=== PATIENT | male | born 1995 | race Caucasian/White ===

== ENCOUNTER 2019-10-22 08:39 | Inpatient (IN) | payer BC ==
--- NOTE | 2019-10-22 09:18 | ER Document Report ---
ED Medical Screen (RME) - General Chief Complaint: Flu Symptoms Stated Complaint: VOMITING,DIARRHEA,HEADACHE Time Seen by Provider: 10/22/19 09:16 Mode of Arrival: Ambulatory Information source: Patient Notes: 24-year-old male presented to ED for complaint of cough cold congestion sore throat fever for the last 2 days. He states he has chest pain bilaterally. He does have a pain to palpation to bilateral chest lungs are clear to auscultation. 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 Patient is alert oriented respirations regular nonlabored speaking in full sentences. I have greeted and performed a rapid initial assessment of this patient. A comprehensive ED assessment and evaluation of the patient, analysis of test results and completion of medical decision making process will be conducted by an additional ED providers. TRAVEL OUTSIDE OF THE [place] IN LAST 30 DAYS: No - Related Data Allergies/Adverse Reactions: No Known Allergies Allergy (Unverified 10/22/19 09:11) Past Medical History - Immunizations Immunizations up to date: Yes Hx Diphtheria, Pertussis, Tetanus Vaccination: Yes Physical Exam - Vital signs Vitals: Temp Pulse Resp BP Pulse Ox 101.6 F H 112 H 20 130/69 H 100 10/22/19 08:53 10/22/19 08:53 10/22/19 08:53 10/22/19 08:53 10/22/19 08:53 Course - Vital Signs Vital signs: Temp Pulse Resp BP Pulse Ox 101.6 F H 112 H 20 130/69 H 100 10/22/19 09:10 10/22/19 09:10 10/22/19 09:10 10/22/19 09:10 10/22/19 09:10
[2019-10-22] MEDS ORDERED: NORMAL SALINE IV ONE (09:19)
[2019-10-22] MEDS ORDERED: ACETAMINOPHEN 325 MG TABLET PO ONE ×2 (09:19→18:35)
[2019-10-22 09:51] LABS: ABSOLUTE LYMPHOCYTES (AUTO) 0.7 10^3/uL (0.5-4.7); ABSOLUTE NEUT (AUTO) 6.8 10^3/uL (1.7-8.2); BASOPHILS % (AUTO) 0.4 % (0-2); EOSINOPHILS % (AUTO) 0.1 % (0-6); HEMATOCRIT 41.6 % (37.9-51.0); HEMOGLOBIN 14.7 g/dL (13.5-17.0); LYMPHOCYTES % (AUTO) 8.7 % (13-45); MEAN CORPUSCULAR HEMOGLOBIN 30.8 pg (27.0-33.4); MEAN CORPUSCULAR HGB CONC 35.3 g/dL (32.0-36.0); MEAN CORPUSCULAR VOLUME 87 fl (80-97); MONOCYTES % (AUTO) 11.9 % (3-13); PLATELET COUNT 140 10^3/uL (150-450); RED BLOOD COUNT 4.77 10^6/uL (4.35-5.55); RED CELL DISTRIBUTION WIDTH 12.7 % (11.5-14.0); SEGMENTED NEUTROPHILS % (AUTO) 78.9 % (42-78); TOTAL CELLS COUNTED % (AUTO) 100 %; WHITE BLOOD COUNT 8.6 10^3/uL (4.0-10.5)
[2019-10-22 10:11] LABS: ANION GAP 11 (5-19)
[2019-10-22 10:50] LABS: A TYPE INFLUENZA AG NEGATIVE (NEGATIVE); B INFLUENZA AG NEGATIVE (NEGATIVE)
[2019-10-22 10:50] LABS: ALBUMIN 4.1 g/dL (3.5-5.0); ALKALINE PHOSPHATASE 65 U/L (38-126); ASPARTATE AMINO TRANSFERASE 58 U/L (17-59); BILIRUBIN,DIRECT 0.3 mg/dL (0.0-0.4); BILIRUBIN,TOTAL 0.9 mg/dL (0.2-1.3); BLOOD UREA NITROGEN 18 mg/dL (7-20); CALCIUM 9.2 mg/dL (8.4-10.2); CARBON DIOXIDE 25 mmol/L (22-30); CHLORIDE 97 mmol/L (98-107); GLUCOSE 135 mg/dL (75-110); POTASSIUM 4.2 mmol/L (3.6-5.0); TOTAL PROTEIN 7.6 g/dL (6.3-8.2)
--- NOTE | 2019-10-22 10:51 | ER Document Report ---
ED General - General Mode of Arrival: Ambulatory TRAVEL OUTSIDE OF THE [place] IN LAST 30 DAYS: No <GABRIEL LEWIS - Last Filed: 10/22/19 20:39> <LUCAS URBINA - Last Filed: 10/23/19 07:37> - General Chief Complaint: Flu Symptoms Stated Complaint: VOMITING,DIARRHEA,HEADACHE Time Seen by Provider: 10/22/19 09:16 Notes: Patient is a 24-year-old male who presents to the emergency department with a chief complaint of rhinorrhea, nausea, diarrhea, and vomiting. Patient has a fever here in the emergency department. Patient states that he has generally n ot been feeling well. He has not able to keep any food or drink down. He also states that he started to have some chest pain that started yesterday. Patient states that he has a history of marijuana and cocaine use, but states that the cocaine use was a long time ago. Patient adamantly denies any IV drug use. (GABRIEL LEWIS) - Related Data Allergies/Adverse Reactions: No Known Allergies Allergy (Unverified 10/22/19 09:11) Past Medical History - General Information source: Patient - Social History Smoking Status: Current Every Day Smoker Family History: None, Other - NEG. GOUT Patient has suicidal ideation: No Patient has homicidal ideation: No - Immunizations Immunizations up to date: Yes Hx Diphtheria, Pertussis, Tetanus Vaccination: Yes <GABRIEL LEWIS - Last Filed: 10/22/19 20:39> Review of Systems <GABRIEL LEWIS - Last Filed: 10/22/19 20:39> - Review of Systems Notes: REVIEW OF SYSTEMS: CONSTITUTIONAL : See HPI. EENT: See HPI. CARDIOVASCULAR: See HPI. RESPIRATORY: See HPI. GASTROINTESTINAL: See HPI. GENITOURINARY: Denies difficulty urinating, burning, blood in urine, urgency or frequency. MUSCULOSKELETAL: Denies neck and back pain. Denies joint pain or swelling. SKIN: Denies rash, itchiness, or lesions HEMATOLOGIC : Denies easy bruising or bleeding. LYMPHATIC: Denies swollen, painful, enlarged glands. NEUROLOGICAL: Denies no numbness or tingling denies weakness. Denies headache. Denies altered mental status. Denies alteration in speech. PSYCHIATRIC: Denies stress, anxiety, alteration in sleep patterns, or depression. All other systems reviewed and negative. (GABRIEL LEWIS) Physical Exam <GABRIEL LEWIS - Last Filed: 10/22/19 20:39> - Vital signs Vitals: Temp Pulse Resp BP Pulse Ox 101.6 F H 112 H 20 130/69 H 100 10/22/19 08:53 10/22/19 08:53 10/22/19 08:53 10/22/19 08:53 10/22/19 08:53 - Notes Notes: PHYSICAL EXAMINATION: GENERAL: Appears thin, mild distress. HEAD: Normocephalic, atraumatic. EYES: PERRL, conjunctiva normal, all extraocular movements intact, sclera nonicteric ENT: Moist mucous membranes. NECK: Supple, no noticeable swelling, redness, rash. Normal range of motion. LUNGS: Equal breath sounds bilaterally and clear to auscultation. No wheezes rales or rhonchi. CARDIOVASCULAR: S1-S2, tachycardic, regular rhythm. Radial pulses 2+, normal. ABDOMEN: Normoactive bowel sounds. Soft, nontender, no guarding, no rebound tenderness, and no masses palpated. EXTREMITIES: Normal strength and range of motion, no pitting or edema. No cyanosis. NEUROLOGICAL: Moves all extremities upon command. Strength 5/5 in all extremities. PSYCH: Normal mood, normal affect. SKIN: Warm, dry. No rash, lesions, ulcerations noted. Normal skin turgor. (GABRIEL LEWIS) Course - Laboratory Result Diagrams: 10/22/19 09:40 10/22/19 09:40 <GABRIEL LEWIS - Last Filed: 10/22/19 20:39> - Laboratory Result Diagrams: 10/23/19 03:59 10/23/19 03:59 <LUCAS URBINA - Last Filed: 10/23/19 07:37> - Re-evaluation Re-evalutation: 10/22/19 12:44 Patient's troponin is 6.24 and his BNP is 3000 480. I suspect that the patient has endocarditis. Patient will be started on cefepime, vancomycin, and Lovenox. Called [facility] transfer center. Awaiting callback from roof plumber. 10/22/19 13:05 I spoke with the roof plumber over at [facility]. Patient will be transferred there for cardiology consult. 10/22/19 19:[address] Lord, the hospitalist at [facility]. Patient will be placed on the wait list for there, as there still is no bed at [facility]. 10/22/19 20:39 Bedside report given to PURA Sadler. He will evaluate the patient upon transfer. (GABRIEL LEWIS) 10/23/19 I have evaluated the patient. Patient has had significant delay and transfer to tertiary care center. I discussed with patient at bedside. He insists that he has never used IV drugs, he does not have any track cuenca, he also has a constellation of symptoms including vomiting, diarrhea, runny nose, along with the chest pain. His drug screen is negative. His bedside echocardiogram did not show any vegetation and showed a small effusion. Patient did have significantly elevated troponin with fever, negative CTA of the chest. Overall clinical picture is more suggestive of myocarditis instead of endocarditis. B lood cultures are still pending, patient did not have any leukocytosis or bandemia. We still do not have cardiology on-call however therefore I did call and speak to [facility]. I spoke with Dr. Meyer. She requests ESR and CRP since the blood cultures are still pending as opposed to being negative, she states clinical picture is more consistent with myocarditis and if this is more likely the case and we have cardiology remote control mirror installer this morning she recommends that the patient really does not need to be transferred until we speak with the roof plumber. I spoke with Dr. Velasquez and he states he will review the records and call me back. 10/23/19 07:27 I spoke again with Dr. Velasquez, roof plumber remote control mirror installer, he states he will consult on the patient, he agrees this is myocarditis and he recommends patient be admitted to this hospital instead of transferred. Patient is very agreeable with this. 10/23/19 07:[address] Rich, hospitalist, patient accepted to [facility] full admission. (LUCAS URBINA) - Vital Signs Vital signs: Temp Pulse Resp BP Pulse Ox 98.7 F 112 H 20 86/61 L 96 10/23/19 04:59 10/22/19 09:10 10/23/19 07:01 10/23/19 07:00 10/23/19 07:01 - Laboratory Laboratory results interpreted by me: 10/22/19 10/22/19 10/22/19 09:40 09:40 09:40 RBC Hgb Hct Plt Count 140 L Lymph % (Auto) 8.7 L Seg Neutrophils % 78.9 H ESR Sodium 132.7 L Potassium Chloride 97 L Carbon Dioxide Glucose 135 H Lactic Acid Calcium Direct Bilirubin AST Creatine Kinase 280 H C-Reactive Protein NT-Pro-B Natriuret Pep Total Protein Albumin Urine Ketones Urine Blood 10/22/19 10/22/19 10/23/19 10:52 12:32 03:59 RBC Hgb Hct Plt Count Lymph % (Auto) Seg Neutrophils % ESR Sodium 134.3 L Potassium 3.4 L Chloride Carbon Dioxide 21 L Glucose Lactic Acid Calcium 7.8 L Direct Bilirubin 0.7 H AST 158 H Creatine Kinase C-Reactive Protein NT-Pro-B Natriuret Pep 3480 H Total Protein 5.8 L Albumin 2.8 L Urine Ketones TRACE H Urine Blood MODERATE H 10/23/19 10/23/19 10/23/19 03:59 03:59 03:59 RBC 3.75 L Hgb 11.5 L D Hct 33.1 L Plt Count 106 L Lymph % (Auto) Seg Neutrophils % ESR 47 H Sodium Potassium Chloride Carbon Dioxide Glucose Lactic Acid 0.6 L Calcium Direct Bilirubin AST Creatine Kinase C-Reactive Protein NT-Pro-B Natriuret Pep Total Protein Albumin Urine Ketones Urine Blood 10/23/19 03:59 RBC Hgb Hct Plt Count Lymph % (Auto) Seg Neutrophils % ESR Sodium Potassium Chloride Carbon Dioxide Glucose Lactic Acid Calcium Direct Bilirubin AST Creatine Kinase C-Reactive Protein 157.6 H NT-Pro-B Natriuret Pep Total Protein Albumin Urine Ketones Urine Blood Discharge <GABRIEL LEWIS - Last Filed: 10/22/19 20:39> - Discharge Admitting Provider: Hilario (Hospitalist) Unit Admitted: [facility] <CARLITOSLUCAS - Last Filed: 10/23/19 07:37> - Discharge Clinical Impression: Elevated troponin, Vomiting and diarrhea, Tachycardia Fever Qualifiers: Fever type: unspecified Qualified Code(s): R50.9 - Fever, unspecified Hypotension Qualifiers: Hypotension type: unspecified hypotension type Qualified Code(s): I95.9 - Hypotension, unspecified Condition: Fair Disposition: ADMITTED INPATIENT
[2019-10-22] MEDS ORDERED: ONDANSETRON HCL INJ/PF 4 MG/2 ML SDV IV ONE ×2 (11:10→23:26)
--- NOTE | 2019-10-22 11:10 | RADIOLOGY REPORT (SQ) ---
EXAM DESCRIPTION: CHEST 2 VIEWS COMPLETED DATE/TIME: 10/22/2019 11:01 am REASON FOR STUDY: cough congestion fever COMPARISON: None. EXAM PARAMETERS: NUMBER OF VIEWS: two views TECHNIQUE: PA and lateral views of the chest were obtained. RADIATION DOSE: NA LIMITATIONS: none FINDINGS: LUNGS AND PLEURA: No consolidation, pleural effusion or pneumothorax. MEDIASTINUM AND HILAR STRUCTURES: No mediastinal or hilar contour abnormality. HEART AND VASCULAR STRUCTURES: The cardiac silhouette and pulmonary vasculature are within normal hernandez its. BONES: No acute findings. HARDWARE: None in the chest. OTHER: No other finding. IMPRESSION: No acute cardiopulmonary process. TECHNICAL DOCUMENTATION: JOB ID: [id number] [employer]- All Rights Reserved Reading location - IP/workstation name: [email or web address]
[2019-10-22 11:38] LABS: TROPONIN I 6.24 ng/mL
[2019-10-22] MEDS ORDERED: CEFTRIAXONE 2 GM/D5W RTU 2 GM/50 ML RTUPB IV ONE (12:24)
[2019-10-22] MEDS ORDERED: VANCOMYCIN HCL INJ 1000 MG VIAL IV ONE (12:25)
[2019-10-22] MEDS ORDERED: CEFEPIME 1 GM/D5W RTU 1 GM/50 ML RTUPB IV ONE (12:26)
--- NOTE | 2019-10-22 13:03 | EKG REPORT ---
SEVERITY:- OTHERWISE NORMAL ECG - SINUS TACHYCARDIA BORDERLINE RIGHT AXIS DEVIATION : Confirmed by: Nelson Prescott MD 22-Oct-2019 13:02:20
[2019-10-22 13:22] LABS: APPEARANCE,URINE CLEAR; BILIRUBIN,URINE NEGATIVE (NEGATIVE); COLOR,URINE YELLOW; GLUCOSE, URINE NEGATIVE (NEGATIVE); KETONES,URINE TRACE mg/dL (NEGATIVE); LEUKOCYTE ESTERASE,URINE NEGATIVE (NEGATIVE); NITRITE,URINE NEGATIVE (NEGATIVE); PROTEIN,URINE NEGATIVE (NEGATIVE); URINE SPECIFIC GRAVITY 1.009; UROBILINOGEN,URINE NEGATIVE mg/dL (<2.0)
[2019-10-22 13:44] LABS: URINE AMPHETAMINES SCREEN NEGATIVE; URINE BARBITURATES SCREEN NEGATIVE; URINE BENZODIAZEPINES SCREEN NEGATIVE; URINE COCAINE SCREEN NEGATIVE; URINE MARIJUANA (THC) SCREEN NEGATIVE; URINE METHADONE SCREEN NEGATIVE; URINE PHENCYCLIDINE SCREEN NEGATIVE
[2019-10-22] MEDS: ENOXAPARIN SODIUM INJ 80 MG/0.8 ML DISP.SYRIN SUBCUT SCH ×2 (14:09→21:37)
--- NOTE | 2019-10-22 14:13 | RADIOLOGY REPORT (SQ) ---
EXAM DESCRIPTION: CTA CHEST COMPLETED DATE/TIME: 10/22/2019 1:58 pm REASON FOR STUDY: chest pain; tachycardia COMPARISON: None. TECHNIQUE: CT scan of the chest performed using helical scanning technique with dynamic intravenous contrast injection. Images reviewed with lung, soft tissue and bone windows. Reconstructed coronal and sagittal MPR images reviewed. Additional 3 dimensional post-processing performed to develop Maximal Intensity Projection images (PA P). All images stored on PACS. All CT scanners at this facility use dose modulation, iterative reconstruction, and/or weight based d osing when appropriate to reduce radiation dose to as low as reasonably achievable (ALARA). [facility]: Dose Right [facility]: CareDose [facility]: Dose Right [facility]: Teradose 4D [facility]: Bizware CONTRAST TYPE AND DOSE: contrast/concentration: Isovue 350.00 mg/ml; Total Contrast Delivered: 112.0 ml; Total Saline Delivered: 61.3 ml Contrast bolus adequate for pulmonary arteries and aorta. RENAL FUNCTION: BUN 18 creatinine 0.99 RADIATION DOSE: CT Rad equipment meets quality standard of care and radiation dose reduction techniq ues were employed. CTDIvol: 13.2 - 14.3 mGy. DLP: 1174 mGy-cm. . LIMITATIONS: None. FINDINGS: LUNGS AND PLEURA: No masses, infiltrates, or pneumothorax. No pleural effusions or pleura l calcifications. AORTA AND GREAT VESSELS: No aneurysm. No dissection. HEART: No pericardial effusion. No significant coronary artery calcifications. PULMONARY ARTERIES: No emboli visualized in the main pulmonary arteries or the segmental branches. HILAR AND MEDIASTINAL STRUCTURES: No identified masses or abnormal nodes. HARDWARE: None in the chest. UPPER ABDOMEN: No significant findings. Limited exam. THYROID AND OTHER SOFT TISSUES: No masses. No adenopathy. BONES: No acute or significant finding. 3D MIPS: Confirm above findings. OTHER: No other significant finding. IMPRESSION: There is no pulmonary embolus. There is no aortic aneurysm or dissection. No acute fin ding. COMMENT: Quality ID # [id number]: Final reports with documentation of one or more dose reduction techniques (e.g., Automated exposure control, adjustment of the mA and/or kV according to patient size, use of iterative reconstruction technique) TECHNICAL DOCUMENTATION: JOB ID: [id number] [employer]- All Rights Reserved Reading location - IP/workstation name: [email or web address]
--- NOTE | 2019-10-22 16:01 | EKG REPORT ---
SEVERITY:- BORDERLINE ECG - SINUS TACHYCARDIA BORDERLINE RIGHT AXIS DEVIATION BORDERLINE T ABNORMALITIES, ANT-LAT LEADS : Confirmed by: Nelson Prescott MD 22-Oct-2019 16:01:24
[2019-10-22] MEDS ORDERED: NORMAL SALINE 1000 ML 1,000 ML IV ONE ×2 (16:58→18:45)
--- NOTE | 2019-10-22 17:46 | EKG REPORT ---
SEVERITY:- ABNORMAL ECG - SINUS TACHYCARDIA BORDERLINE T WAVE ABNORMALITIES ANTEROATERAL LEADS LA ENLARGEMENT : Confirmed by: Nelson Prescott MD 22-Oct-2019 17:46:10
--- NOTE | 2019-10-22 18:24 | XCELERA REPORT ---
[address] [address] Transthoracic Echocardiogram Report Name: JORGE ALBERTO PRINCE Age: 24 yrs Gender: Male : 1995 Patient Status: Emergency Patient Location: ER Study Date: 10/22/2019 03:33 PM Height: 72 in Weight: 160 lb BSA: 1.9 m2 Reason For Study: chest pain; eval endocarditis?; elevated troponin Ordering Physician: GABRIEL LEWIS Performed By: Mili Moise Interpretation Summary Min posterior pericardial effusion. Normal aortic root not dilated. Normal 3 cusps AV with no vegetation, no and no AR. MV appears abnormal in the PLAX view, AML is thickened, unable to be certain this is vegetation, No MS, no MVP and posterior directing mitral regurgitant jet, with no LA enlargement by CRISTIAN. Need CALLI to assess AML to r/o vegetation.. TV no vegetation, mild TR jet and no pulm hypentension RVSP 25mm Hg. No vegetation PV. no SD . LVis not enlarged, there is mild concentric LVH. LVEF 45-50% mild impaired, global LVSD except the inferior wall is not hypokinetic (normal). No LVDD. RH is not enlarged. MMode/2D Measurements & Calculations RVDd: 1.8 cm LVIDd: 4.9 cm FS: 21.8 % Ao root diam: 2.9 cm IVSd: 1.2 cm LVIDs: 3.8 cm EDV(Teich): Ao root area: LVPWd: 0.82 cm 112.0 ml ESV(Teich): 62.7 ml6.5 cm2 LA dimension: 3.1 cm EF(Teich): 44.0 % LVLd ap4: 8.2 cm SV(MOD-sp4): EDV(MOD-sp4): 44.0 ml 99.0 ml LVLs ap4: 6.6 cm ESV(MOD-sp4): 55.0 ml EF(MOD-sp4): 44.4 % Doppler Measurements & Calculations MV E max evon: MV P1/2t max evon: Ao V2 max: LV V1 max P.3 cm/sec 148.0 cm/sec 112.5 cm/sec 4.2 mmHg MV A max evon: MV P1/2t: 34.3 msec Ao max P.1 mmHg LV V1 max: 84.4 cm/sec 102.2 cm/sec MV E/A: 1.1 MVA(P1/2t): 6.4 cm2 MV dec slope: 1265 cm/sec2 MV dec time: 0.12 sec PA V2 max: TR max evon: MV P1/2t-pr_phl: 72.1 cm/sec 230.8 cm/sec 34.3 msec PA max PG: TR max P.3 mmHg 2.1 mmHg I WMSI = 1.81 % Normal = 19 Segments Size X - Cannot 1 - Normal 2 - 3 - Akinetic4 - 1-2 small Interpret Hypokinetic Dyskinetic 3-5 moderate 5 - 6-14 large Aneurysmal 15-16 diffuse : GABRIEL LEWIS Andre
[2019-10-22] MEDS ORDERED: LOPERAMIDE HCL 2 MG CAPSULE PO ONE (19:36)
[2019-10-22] MEDS ORDERED: VANCOMYCIN HCL 0 MG in DEXTROSE 5%-WATER 250 ML IV NR (20:15)
[2019-10-22] MEDS: CEFEPIME 1 GM/D5W RTU 1 GM/50 ML RTUPB IV SCH (21:05)
[2019-10-22] MEDS ORDERED: VANCOMYCIN HCL INJ 1000 MG VIAL ONE (21:20)
[2019-10-22] MEDS: VANCOMYCIN HCL 1,000 MG in DEXTROSE 5%-WATER 250 ML IV SCH (21:28)
[2019-10-23] MEDS ORDERED: ACETAMINOPHEN 325 MG TABLET PO ONE (00:21)
[2019-10-23 04:18] LABS: ABSOLUTE MONOCYTES (AUTO) 0.9 10^3/uL (0.1-1.4); ABSOLUTE NEUT (AUTO) 5.3 10^3/uL (1.7-8.2); BASOPHILS % (AUTO) 0.5 % (0-2); EOSINOPHILS % (AUTO) 0.5 % (0-6); HEMATOCRIT 33.1 % (37.9-51.0); LYMPHOCYTES % (AUTO) 13.7 % (13-45); MEAN CORPUSCULAR HEMOGLOBIN 30.8 pg (27.0-33.4); MEAN CORPUSCULAR HGB CONC 34.9 g/dL (32.0-36.0); MEAN CORPUSCULAR VOLUME 88 fl (80-97); MONOCYTES % (AUTO) 11.8 % (3-13); PLATELET COUNT 106 10^3/uL (150-450); RED BLOOD COUNT 3.75 10^6/uL (4.35-5.55); RED CELL DISTRIBUTION WIDTH 12.8 % (11.5-14.0); SEGMENTED NEUTROPHILS % (AUTO) 73.5 % (42-78); TOTAL CELLS COUNTED % (AUTO) 100 %; WHITE BLOOD COUNT 7.2 10^3/uL (4.0-10.5)
[2019-10-23 04:30] LABS: HEMOGLOBIN 11.5 g/dL (13.5-17.0)
[2019-10-23 04:33] LABS: ALBUMIN 2.8 g/dL (3.5-5.0); ALKALINE PHOSPHATASE 101 U/L (38-126); ANION GAP 8 (5-19); ASPARTATE AMINO TRANSFERASE 158 U/L (17-59); BILIRUBIN,DIRECT 0.7 mg/dL (0.0-0.4); BILIRUBIN,TOTAL 1.3 mg/dL (0.2-1.3); BLOOD UREA NITROGEN 11 mg/dL (7-20); CALCIUM 7.8 mg/dL (8.4-10.2); CARBON DIOXIDE 21 mmol/L (22-30); CHLORIDE 105 mmol/L (98-107); GLUCOSE 109 mg/dL (75-110); POTASSIUM 3.4 mmol/L (3.6-5.0); TOTAL PROTEIN 5.8 g/dL (6.3-8.2)
[2019-10-23] MEDS: CEFEPIME 1 GM/D5W RTU 1 GM/50 ML RTUPB IV SCH ×3 (05:00→21:42)
[2019-10-23] MEDS: VANCOMYCIN HCL 1,000 MG in DEXTROSE 5%-WATER 250 ML IV SCH ×3 (05:49→21:41)
[2019-10-23] MEDS ORDERED: TEMAZEPAM 15 MG CAPSULE PO PRN (09:23)
[2019-10-23] MEDS ORDERED: MAG HYDROX/AL HYDROX/SIMETH SUSP 30 ML UDCUP PO PRN (09:23)
[2019-10-23] MEDS ORDERED: MAGNESIUM HYDROXIDE SUSP 30 ML UDCUP PO PRN (09:23)
[2019-10-23] MEDS ORDERED: ONDANSETRON HCL INJ/PF 4 MG/2 ML SDV IV PRN (09:23)
[2019-10-23] MEDS: ENOXAPARIN SODIUM INJ 80 MG/0.8 ML DISP.SYRIN SUBCUT SCH ×2 (09:31→21:42)
[2019-10-23] MEDS ORDERED: LOPERAMIDE HCL 2 MG CAPSULE PO PRN (09:39)
[2019-10-23] MEDS ORDERED: COLCHICINE 0.6 MG TABLET PO SCH (10:00)
[2019-10-23] MEDS: NORMAL SALINE 1000 ML 1,000 ML IV PRN ×4 (10:55→23:13)
[2019-10-23] MEDS ORDERED: INFLUENZA QUAD (6MOS+) 2019-20 VAC 0.5 ML SYR IM ONE (10:56)
[2019-10-23] MEDS: FAMOTIDINE INJ/PF 20 MG/2 ML SDV IV SCH ×2 (11:13→21:42)
[2019-10-23 11:47] LABS: CREATINE KINASE MB 0.84 ng/mL (<4.55); TROPONIN I 1.67 ng/mL
--- NOTE | 2019-10-23 13:55 | EKG REPORT ---
SEVERITY:- ABNORMAL ECG - SINUS TACHYCARDIA BORDERLINE RIGHT AXIS DEVIATION ABNORMAL T, CONSIDER ISCHEMIA, LATERAL LEADS : Confirmed by: Nelson Prescott MD 23-Oct-2019 13:54:05
[2019-10-23 14:31] LABS: VANCOMYCIN,TROUGH 6.9 ug/mL (5.0-20.0)
--- NOTE | 2019-10-23 15:13 | PDOC CONSULTATION ---
Consultation Consult Date: 10/23/19 Provider Consulted: VIRGINIE VARGAS Consult reason:: Elevated troponin History of Present Illness Admission Date/PCP: 10/23/19 08:02 Patient complains of: Feeling unwell History of Present Illness: JORGE ALBERTO PRINCE is a 24 year old male with no significant prior medical history. He presents with general malaise, headache and constitutional symptoms. He was found to have elevated troponin He smokes cigarettes. He uses recreational agents including marijuana and cocaine. Last use was 3 months ago. 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 No familial illnesses. Certainly no familial history suggestive of premature coronary artery disease or sudden cardiac . At the time of my evaluation patient endorses some headache and chest discomfort. The chest discomfort is vastly improved. Social History Smoking Status: Current Every Day Smoker Cigarettes Packs Per Day: 1 Frequency of Alcohol Use: Occasional Hx Recreational Drug Use: Yes Drugs: None - Advance Directive Resuscitation Status: Full Code Family History Family History: None, Other - NEG. GOUT Parental Family History Reviewed: No - No familial illnesses Children Family History Reviewed: NA Sibling(s) Family History Reviewed.: NA Medication/Allergy Home Medications: No Home Medications 10/23/19 Allergies/Adverse Reactions: No Known Allergies Allergy (Unverified 10/22/19 09:11) Review of Systems Constitutional: PRESENT: as per HPI, chills, fatigue, fever(s), headache(s), night sweats Ears: PRESENT: as per HPI Cardiovascular: PRESENT: chest pain Neurological: PRESENT: as per HPI Psychiatric: PRESENT: as per HPI Physical Exam Vital Signs: Temp Pulse Resp BP Pulse Ox 98.4 F 109 H 16 83/34 L 100 10/23/19 09:23 10/23/19 14:00 10/23/19 09:23 10/23/19 09:23 10/23/19 09:23 Intake & Output 10/22/19 10/23/19 10/24/19 06:59 06:59 06:59 Intake Total 4590 300 Balance 4590 300 Weight 73 kg General appearance: PRESENT: no acute distress, cooperative, thin Head exam: PRESENT: atraumatic, normocephalic Eye exam: PRESENT: EOMI Respiratory exam: PRESENT: decreased breath sounds, symmetrical, unlabored Cardiovascular exam: PRESENT: +S1, +S2, tachycardia Pulses: PRESENT: normal radial pulses GI/Abdominal exam: PRESENT: soft Rectal exam: PRESENT: deferred Musculoskeletal exam: PRESENT: normal inspection Neurological exam: PRESENT: alert, awake, oriented to person, oriented to place, oriented to time, oriented to situation Skin exam: PRESENT: dry, intact Results Laboratory Results: 10/23/19 03:59 10/23/19 03:59 10/23/19 10/23/19 10/23/19 00:14 03:59 03:59 WBC 7.2 RBC 3.75 L Hgb 11.5 L D Hct 33.1 L MCV 88 MCH 30.8 MCHC 34.9 RDW 12.8 Plt Count 106 L Seg Neutrophils % 73.5 Sodium 134.3 L Potassium 3.4 L Chloride 105 Carbon Dioxide 21 L Anion Gap 8 BUN 11 Creatinine 0.88 Est GFR ( Amer) > 60 Glucose 109 Lactic Acid 1.2 Calcium 7.8 L Total Bilirubin 1.3 AST 158 H Alkaline Phosphatase 101 C-Reactive Protein Total Protein 5.8 L Albumin 2.8 L 10/23/19 10/23/19 03:59 03:59 WBC RBC Hgb Hct MCV MCH MCHC RDW Plt Count Seg Neutrophils % Sodium Potassium Chloride Carbon Dioxide Anion Gap BUN Creatinine Est GFR ( Amer) Glucose Lactic Acid 0.6 L Calcium Total Bilirubin AST Alkaline Phosphatase C-Reactive Protein 157.6 H Total Protein Albumin 10/22/19 10/22/19 10/22/19 09:40 09:40 10:52 Creatine Kinase 280 H CK-MB (CK-2) Troponin I 5.650 6.240 NT-Pro-B Natriuret Pep 3480 H 10/22/19 10/22/19 10/23/19 17:31 22:30 03:59 Creatine Kinase CK-MB (CK-2) Troponin I 4.200 3.180 2.340 NT-Pro-B Natriuret Pep 10/23/19 10/23/19 10:59 10:59 Creatine Kinase 99 CK-MB (CK-2) 0.84 Troponin I 1.670 NT-Pro-B Natriuret Pep EKG Comments: Twelve-lead EKG. Independently reviewed by me Sinus tachycardia. No convincing evidence of myocardial injury or ischemia. Impressions: Chest X-Ray 10/22/19 09:16 IMPRESSION: No acute cardiopulmonary process. Chest/Abdomen CTA 10/22/19 12:57 IMPRESSION: There is no pulmonary embolus. There is no aortic aneurysm or dissection. No acute finding. Transthoracic echocardiogram images were reviewed. Low normal to mildly reduced ventricular ejection fraction estimated at approximately 50% %. Mild global hypokinesis. Mitral valve is thickened without any convincing evidence for vegetation. Status: Imported from PACS Assessment & Plan - Diagnosis (1) Elevated troponin Is this a current diagnosis for this admission?: Yes Plan: Elevated troponin in the gentleman with constitutional symptoms are suggestive of ongoing infection with possible myocarditis EKG does not show any evidence of myocardial injury or ischemia. Would recommend supportive treatment for myocarditis. Echocardiogram shows mildly reduced to low normal ejection fraction with mild global hypokinesis. Agree with work-up for infectious fevers. Supportive care. Echocardiogram will be repeated based on clinical progress. Consider low-dose beta-cedric. Metoprolol 12.5 mg twice daily (2) Tachycardia Is this a current diagnosis for this admission?: Yes Plan: Likely reflection of overall infectious process and myocarditis. Supportive care Beta-cedric low-dose (3) Myocarditis Is this a current diagnosis for this admission?: Yes Plan: This is likely myocarditis in the presence of overwhelming infection or infectious process. Elevated troponin without typical chest pain and EKG not demonstrating any changes suggestive of myocardial ischemia Supportive care Beta-blockers Watch volume status Echocardiogram can be repeated based on clinical course
[2019-10-23 15:53] LABS: CREATINE KINASE MB 0.58 ng/mL (<4.55); TROPONIN I 1.51 ng/mL
[2019-10-23] MEDS: MORPHINE SULFATE 10 MG/ML INJ IV PRN ×2 (18:29→23:12)
[2019-10-23] MEDS ORDERED: NORMAL SALINE 1000 ML 1,000 ML IV PRN (18:38)
--- NOTE | 2019-10-23 20:45 | PDOC H&P ---
History of Present Illness Admission Date/PCP: 10/23/19 08:02 Patient complains of: Overwhelming fatigue with nausea, vomiting, diarrhea and chest discomfort History of Present Illness: JORGE ALBERTO PRINCE is a 24 year old male with no significant past medical history who reports progressive symptoms of nausea, vomiting, diarrhea, fever, chills, cold sweats and body aches since Tuesday at 3:00 in the morning. In the emergency room he is found to have elevated troponin, elevated BNP, elevated creatinine kinase, elevated C-reactive protein and hyponatremia. Myocarditis is suspected and the patient was referred to the hospital service for admission Past Medical History Medical History: None Past Surgical History Past Surgical History: Reports: Orthopedic Surgery - Wrist fracture Social History Lives with: Alone Smoking Status: Current Every Day Smoker Cigarettes Packs Per Day: 1 - He has not smoked over the last 3 days Electronic Cigarette use?: No Frequency of Alcohol Use: Occasional Hx Recreational Drug Use: Yes Drugs: Cocaine, Marijuana Hx Prescription Drug Abuse: No - Advance Directive Resuscitation Status: Full Code Family History Family History: Malignancy, Other - NEG. GOUT Parental Family History Reviewed: Yes Children Family History Reviewed: Yes Sibling(s) Family History Reviewed.: NA Medication/Allergy Home Medications: No Home Medications 10/23/19 Allergies/Adverse Reactions: No Known Allergies Allergy (Unverified 10/22/19 09:11) Review of Systems Constitutional: PRESENT: anorexia, chills, fatigue, fever(s), headache(s), night sweats Eyes: ABSENT: visual disturbances Ears: ABSENT: hearing changes Nose, Mouth, and Throat: ABSENT: mouth pain, sore throat Cardiovascular: PRESENT: chest pain Respiratory: ABSENT: dyspnea Gastrointestinal: PRESENT: diarrhea, nausea, vomiting Genitourinary: PRESENT: other - Decreased urine output Musculoskeletal: PRESENT: other Integumentary: ABSENT: diaphoresis Neurological: ABSENT: abnormal speech, confusion, syncope, tremor(s) Psychiatric: ABSENT: anxiety, depression, hallucinations Endocrine: ABSENT: cold intolerance, flushing, heat intolerance, polydipsia, polyphagia, polyuria Hematologic/Lymphatic: ABSENT: easy bleeding, easy bruising Physical Exam Vital Signs: Temp Pulse Resp BP Pulse Ox 100.9 F H 110 H 20 88/41 L 98 10/23/19 17:52 10/23/19 17:52 10/23/19 16:49 10/23/19 17:52 10/23/19 17:52 Intake & Output 10/22/19 10/23/19 10/24/19 06:59 06:59 06:59 Intake Total 4590 3030 Balance 4590 3030 Weight 73 kg General appearance: PRESENT: cooperative, thin, well-developed, well-nourished, other - Moderate to severe distress Head exam: PRESENT: atraumatic, normocephalic Eye exam: PRESENT: conjunctiva pink, EOMI. ABSENT: scleral icterus Ear exam: PRESENT: normal external ear exam. ABSENT: bleeding, drainage Mouth exam: PRESENT: dry mucosa, tongue midline Teeth exam: ABSENT: poor dentation Neck exam: PRESENT: full ROM. ABSENT: JVD, lymphadenopathy Respiratory exam: PRESENT: clear to auscultation raul, symmetrical, tachypnea, unlabored. ABSENT: rales, rhonchi, wheezes Cardiovascular exam: PRESENT: +S1, +S2, tachycardia GI/Abdominal exam: PRESENT: diminished bowel sounds, soft. ABSENT: distended, tenderness Rectal exam: PRESENT: deferred Gentrourinary exam: ABSENT: indwelling catheter Extremities exam: ABSENT: pedal edema Musculoskeletal exam: PRESENT: ambulatory, normal inspection. ABSENT: deformity Neurological exam: PRESENT: alert, awake, oriented to person, oriented to place, oriented to time, oriented to situation, CN II-XII grossly intact. ABSENT: motor sensory deficit Psychiatric exam: PRESENT: appropriate affect - Affect reflects his current clinical state. ABSENT: agitated, anxious Focused psych exam: ABSENT: delusional Skin exam: PRESENT: dry, normal color, warm. ABSENT: rash Results Laboratory Results: 10/23/19 03:59 10/23/19 03:59 10/23/19 10/23/19 10/23/19 00:14 03:59 03:59 WBC 7.2 RBC 3.75 L Hgb 11.5 L D Hct 33.1 L MCV 88 MCH 30.8 MCHC 34.9 RDW 12.8 Plt Count 106 L Seg Neutrophils % 73.5 Sodium 134.3 L Potassium 3.4 L Chloride 105 Carbon Dioxide 21 L Anion Gap 8 BUN 11 Creatinine 0.88 Est GFR ( Amer) > 60 Glucose 109 Lactic Acid 1.2 Calcium 7.8 L Total Bilirubin 1.3 AST 158 H Alkaline Phosphatase 101 C-Reactive Protein Total Protein 5.8 L Albumin 2.8 L 10/23/19 10/23/19 03:59 03:59 WBC RBC Hgb Hct MCV MCH MCHC RDW Plt Count Seg Neutrophils % Sodium Potassium Chloride Carbon Dioxide Anion Gap BUN Creatinine Est GFR ( Amer) Glucose Lactic Acid 0.6 L Calcium Total Bilirubin AST Alkaline Phosphatase C-Reactive Protein 157.6 H Total Protein Albumin 10/22/19 10/22/19 10/22/19 09:40 09:40 10:52 Creatine Kinase 280 H CK-MB (CK-2) Troponin I 5.650 6.240 NT-Pro-B Natriuret Pep 3480 H 10/22/19 10/22/19 10/23/19 17:31 22:30 03:59 Creatine Kinase CK-MB (CK-2) Troponin I 4.200 3.180 2.340 NT-Pro-B Natriuret Pep 10/23/19 10/23/19 10/23/19 10:59 10:59 15:13 Creatine Kinase 99 91 CK-MB (CK-2) 0.84 Troponin I 1.670 NT-Pro-B Natriuret Pep 10/23/19 15:13 Creatine Kinase CK-MB (CK-2) 0.58 Troponin I 1.510 NT-Pro-B Natriuret Pep Impressions: Chest X-Ray 10/22/19 09:16 IMPRESSION: No acute cardiopulmonary process. Chest/Abdomen CTA 10/22/19 12:57 IMPRESSION: There is no pulmonary embolus. There is no aortic aneurysm or dissection. No acute finding. Assessment and Plan - Diagnosis (1) Vomiting and diarrhea Is this a current diagnosis for this admission?: Yes Plan: Possibly a viral syndrome preceding the myocarditis (2) Fever Qualifiers: Fever type: unspecified Qualified Code(s): R50.9 - Fever, unspecified Is this a current diagnosis for this admission?: Yes Plan: Secondary to possible viral infection. Will treat with Tylenol and aggressive IV fluids (3) Myocarditis Qualifiers: Myocarditis type: idiopathic Chronicity: acute Qualified Code(s): I40.1 - Isolated myocarditis Is this a current diagnosis for this admission?: Yes Plan: Please also see cardiology note. Patient will remain on antibiotics started in the emergency department until tomorrow. If cultures are negative then we will discontinue. It is more likely a viral mediated issue and supportive care will be provided. Cardiology is following as well. (4) Elevated troponin Is this a current diagnosis for this admission?: Yes Plan: Secondary to myocarditis. We will continue to monitor. (5) Hypotension Qualifiers: Hypotension type: hypotension due to hypovolemia Qualified Code(s): I95.89 - Other hypotension; E86.1 - Hypovolemia Is this a current diagnosis for this admission?: Yes Plan: Responding to fluids. (6) Tachycardia Is this a current diagnosis for this admission?: Yes Plan: Secondary to hypovolemia (7) Hyponatremia Is this a current diagnosis for this admission?: Yes Plan: Likely related to the acute illness. Will monitor closely. The patient will be receiving large volume normal saline. - Time Time Spent with patient: 35 or more minutes Medications reviewed and adjusted accordingly: Yes Anticipated discharge: Home - Inpatient Certification Based on my medical assessment, after consideration of the patient's comorbidities, presenting symptoms, or acuity I expect that the services needed warrant INPATIENT care.: Yes I certify that my determination is in accordance with my understanding of Medicare's requirements for reasonable and necessary INPATIENT services [42 CFR 412.3e].: Yes Medical Necessity: Need Close Monitoring Due to Risk of Patient Decompensation, Need For IV Fluids, Need for IV Antibiotics Post Hospital Care: D/C Parking Enforcement Specialist Documentation
[2019-10-23] MEDS: POTASSIUM CHLORIDE 10 MEQ TABLET.ER PO SCH (21:41)
[2019-10-23] MEDS: ACETAMINOPHEN 325 MG TABLET PO PRN (21:47)
[2019-10-23 22:16] LABS: CREATINE KINASE MB 0.69 ng/mL (<4.55)
[2019-10-23 22:28] LABS: TROPONIN I 1.46 ng/mL
[2019-10-24] MEDS: VANCOMYCIN HCL 1,000 MG in DEXTROSE 5%-WATER 250 ML IV SCH ×3 (02:15→14:04)
[2019-10-24] MEDS: ACETAMINOPHEN 325 MG TABLET PO PRN ×2 (04:00→21:37)
[2019-10-24 04:34] LABS: ANION GAP 9 (5-19); BLOOD UREA NITROGEN 7 mg/dL (7-20); CALCIUM 7.8 mg/dL (8.4-10.2); CARBON DIOXIDE 22 mmol/L (22-30); CHLORIDE 105 mmol/L (98-107); CREATINE KINASE 100 U/L (55-170); GLUCOSE 120 mg/dL (75-110); POTASSIUM 3.7 mmol/L (3.6-5.0)
[2019-10-24 04:37] LABS: CREATINE KINASE MB 1.34 ng/mL (<4.55); TROPONIN I 1.01 ng/mL
[2019-10-24 04:45] LABS: C-REACTIVE PROTEIN 186.2 mg/L (<10.0)
[2019-10-24] MEDS: NORMAL SALINE 1000 ML 1,000 ML IV PRN ×2 (05:28→08:26)
[2019-10-24] MEDS: CEFEPIME 1 GM/D5W RTU 1 GM/50 ML RTUPB IV SCH ×2 (05:29→13:16)
[2019-10-24] MEDS ORDERED: FUROSEMIDE INJ/PF 20 MG/2 ML SDV IV ONE (09:33)
[2019-10-24] MEDS ORDERED: NORMAL SALINE 1000 ML 1,000 ML IV PRN (09:37)
[2019-10-24] MEDS: POTASSIUM CHLORIDE 10 MEQ TABLET.ER PO SCH ×2 (09:41→21:36)
[2019-10-24] MEDS: ENOXAPARIN SODIUM INJ 80 MG/0.8 ML DISP.SYRIN SUBCUT SCH ×2 (09:41→21:38)
[2019-10-24] MEDS: FAMOTIDINE INJ/PF 20 MG/2 ML SDV IV SCH ×2 (09:41→21:37)
--- NOTE | 2019-10-24 09:49 | PDOC PROGRESS REPORT ---
Subjective Progress Note for:: 10/24/19 Subjective:: The patient is feeling much better. Despite a SBP in the 80s he is wide awake and conversant. He still remains tachycardic. He also reports that he is having diarrhea again today. Reason For Visit: MYOCARDITIS,HYPOTENSION,FEVER,CHILLS N&V Physical Exam Vital Signs: Temp Pulse Resp BP Pulse Ox 99.6 F 115 H 16 81/31 L 96 10/24/19 07:53 10/24/19 07:53 10/24/19 07:53 10/24/19 07:53 10/24/19 07:53 Intake & Output 10/23/19 10/24/19 10/25/19 06:59 06:59 06:59 Intake Total 4590 6730 890 Output Total 1650 Balance 4590 5080 890 Weight 73 kg 74.4 kg General appearance: PRESENT: no acute distress, cooperative, well-developed, well-nourished Head exam: PRESENT: atraumatic, normocephalic Eye exam: PRESENT: conjunctiva pink. ABSENT: scleral icterus Ear exam: PRESENT: normal external ear exam. ABSENT: bleeding, drainage Mouth exam: PRESENT: moist, tongue midline Respiratory exam: PRESENT: rales - Bilateral, symmetrical, unlabored. ABSENT: rhonchi, tachypnea, wheezes Cardiovascular exam: PRESENT: RRR, +S1, +S2, tachycardia GI/Abdominal exam: PRESENT: hyperactive bowel sounds, soft. ABSENT: distended, guarding, tenderness Rectal exam: PRESENT: deferred Extremities exam: ABSENT: pedal edema Musculoskeletal exam: PRESENT: ambulatory, normal inspection Neurological exam: PRESENT: alert, awake, oriented to person, oriented to place, oriented to time, oriented to situation, CN II-XII grossly intact. ABSENT: motor sensory deficit Psychiatric exam: PRESENT: appropriate affect. ABSENT: agitated, anxious Focused psych exam: ABSENT: delusional, restlessness Skin exam: PRESENT: dry, normal color, warm. ABSENT: rash Results Laboratory Results: 10/24/19 04:00 10/24/19 04:00 10/24/19 10/24/19 04:00 04:00 WBC 8.3 RBC 4.17 L Hgb 12.6 L Hct 35.9 L MCV 86 MCH 30.3 MCHC 35.2 RDW 12.9 Plt Count 129 L Sodium 136.3 L Potassium 3.7 Chloride 105 Carbon Dioxide 22 Anion Gap 9 BUN 7 Creatinine 0.86 Est GFR ( Amer) > 60 Glucose 120 H Calcium 7.8 L Magnesium 2.0 C-Reactive Protein 186.2 H 10/22/19 10/22/19 10/22/19 09:40 09:40 10:52 Creatine Kinase 280 H CK-MB (CK-2) Troponin I 5.650 6.240 NT-Pro-B Natriuret Pep 3480 H 10/22/19 10/22/19 10/23/19 17:31 22:30 03:59 Creatine Kinase CK-MB (CK-2) Troponin I 4.200 3.180 2.340 NT-Pro-B Natriuret Pep 10/23/19 10/23/19 10/23/19 10:59 10:59 15:13 Creatine Kinase 99 91 CK-MB (CK-2) 0.84 Troponin I 1.670 NT-Pro-B Natriuret Pep 10/23/19 10/23/19 10/23/19 15:13 21:39 21:39 Creatine Kinase 82 CK-MB (CK-2) 0.58 0.69 Troponin I 1.510 1.460 NT-Pro-B Natriuret Pep 10/24/19 10/24/19 04:00 04:00 Creatine Kinase 100 CK-MB (CK-2) 1.34 Troponin I 1.010 NT-Pro-B Natriuret Pep 76999 H Impressions: Chest X-Ray 10/22/19 09:16 IMPRESSION: No acute cardiopulmonary process. Chest/Abdomen CTA 10/22/19 12:57 IMPRESSION: There is no pulmonary embolus. There is no aortic aneurysm or dissection. No acute finding. Assessment and Plan - Diagnosis (1) Vomiting and diarrhea Is this a current diagnosis for this admission?: Yes Plan: The vomiting has subsided. The patient still has diarrhea. This is the etiology for low potassium. Stool studies are pending. (2) Fever Qualifiers: Fever type: unspecified Qualified Code(s): R50.9 - Fever, unspecified Is this a current diagnosis for this admission?: Yes Plan: Still with occasional low-grade fever. Continue supportive care (3) Myocarditis Qualifiers: Myocarditis type: idiopathic Chronicity: acute Qualified Code(s): I40.1 - Isolated myocarditis Is this a current diagnosis for this admission?: Yes Plan: Ongoing supportive care. I have discontinued antibiotics as I do not believe there is a bacterial component. I have ordered a repeat echocardiogram to assess for any changes in the left ventricular function. (4) Elevated troponin Is this a current diagnosis for this admission?: Yes Plan: Continues to improve (5) Hypotension Qualifiers: Hypotension type: hypotension due to hypovolemia Qualified Code(s): I95.89 - Other hypotension; E86.1 - Hypovolemia Is this a current diagnosis for this admission?: Yes Plan: Still remains somewhat hypotensive. Due to pulmonary edema from aggressive fluid administration I have discontinued the IV fluid and have placed the patient on scheduled intravenous furosemide. We will continue to monitor the BNP, pulmonary status and oxygen demand (6) Tachycardia Is this a current diagnosis for this admission?: Yes Plan: We will start low-dose beta-cedric (7) Hyponatremia Is this a current diagnosis for this admission?: Yes Plan: Resolved - Time Time Spent with patient: 15-24 minutes Medications reviewed and adjusted accordingly: Yes Anticipated discharge: Home
[2019-10-24] MEDS: MORPHINE SULFATE 10 MG/ML INJ IV PRN ×3 (11:32→23:55)
[2019-10-24] MEDS ORDERED: GUAIFENESIN/D-METHORPHAN (200-20 MG) SYRUP 10 ML PO PRN (13:24)
[2019-10-24] MEDS: KETOROLAC TROMETHAMINE INJ/PF 30 MG/1 ML SDV IV PRN (14:04)
[2019-10-24 15:39] LABS: ABSOLUTE LYMPHOCYTES (AUTO) 0.8 10^3/uL (0.5-4.7); ABSOLUTE MONOCYTES (AUTO) 0.6 10^3/uL (0.1-1.4); ABSOLUTE NEUT (AUTO) 7.8 10^3/uL (1.7-8.2); BASOPHILS % (AUTO) 0.2 % (0-2); EOSINOPHILS % (AUTO) 0.4 % (0-6); HEMATOCRIT 34.1 % (37.9-51.0); HEMOGLOBIN 11.9 g/dL (13.5-17.0); LYMPHOCYTES % (AUTO) 8.5 % (13-45); MEAN CORPUSCULAR HEMOGLOBIN 30.5 pg (27.0-33.4); MEAN CORPUSCULAR VOLUME 87 fl (80-97); MONOCYTES % (AUTO) 6.7 % (3-13); PLATELET COUNT 150 10^3/uL (150-450); RED BLOOD COUNT 3.91 10^6/uL (4.35-5.55); RED CELL DISTRIBUTION WIDTH 12.6 % (11.5-14.0); SEGMENTED NEUTROPHILS % (AUTO) 84.2 % (42-78); TOTAL CELLS COUNTED % (AUTO) 100 %; WHITE BLOOD COUNT 9.3 10^3/uL (4.0-10.5)
[2019-10-24 16:03] LABS: ANION GAP 7 (5-19); BLOOD UREA NITROGEN 7 mg/dL (7-20); CALCIUM 7.6 mg/dL (8.4-10.2); CARBON DIOXIDE 22 mmol/L (22-30); CHLORIDE 105 mmol/L (98-107); GLUCOSE 126 mg/dL (75-110); POTASSIUM 3.3 mmol/L (3.6-5.0)
--- NOTE | 2019-10-24 16:12 | RADIOLOGY REPORT (SQ) ---
EXAM DESCRIPTION: CHEST SINGLE VIEW COMPLETED DATE/TIME: 10/24/2019 3:55 pm REASON FOR STUDY: SOB COMPARISON: 10/22/2019 EXAM PARAMETERS: NUMBER OF VIEWS: One view. TECHNIQUE: Single frontal radiographic view of the chest acquired. RADIATION DOSE: NA LIMITATIONS: None. FINDINGS: LUNGS AND PLEURA: Since prior film the patient has developed diffuse bilateral alveolar ba silar infiltrate. Findings are most consistent with pulmonary edema. MEDIASTINUM AND HILAR STRUCTURES: No masses. Contour normal. HEART AND VASCULAR STRUCTURES: Heart normal in size. Normal vasculature. BONES: No acute findings. HARDWARE: None in the chest. OTHER: No other significant finding. IMPRESSION: Fairly extensive bilateral alveolar basilar infiltrate most consistent with pulmonary ed alejandra. TECHNICAL DOCUMENTATION: JOB ID: [id number] [employer]- All Rights Reserved Reading location - IP/workstation name: [email or web address]
[2019-10-24] MEDS ORDERED: POTASSI CL 20 MEQ/50 ML RIDER 20 MEQ/50 ML RTUPB IV ONE (17:30)
--- NOTE | 2019-10-24 17:32 | PDOC PROGRESS REPORT ---
Subjective Progress Note for:: 10/24/19 Subjective:: Resting in bed. Mild pleuritic chest pain especially on coughing. Mild hemoptysis. Rhythm continues to be sinus tachycardia. Constitutional symptoms are better. Had diarrhea. Reason For Visit: MYOCARDITIS,HYPOTENSION,FEVER,CHILLS N&V Physical Exam Vital Signs: Temp Pulse Resp BP Pulse Ox 101.4 F H 129 H 20 107/54 L 81 L 10/24/19 14:26 10/24/19 14:26 10/24/19 14:26 10/24/19 14:26 10/24/19 14:26 Intake & Output 10/23/19 10/24/19 10/25/19 06:59 06:59 06:59 Intake Total 4590 6730 2093 Output Total 1650 Balance 4590 5080 3 Weight 73 kg 74.4 kg General appearance: PRESENT: cooperative, well-developed Head exam: PRESENT: atraumatic, normocephalic Eye exam: PRESENT: EOMI Neck exam: PRESENT: full ROM Respiratory exam: PRESENT: clear to auscultation raul, symmetrical, unlabored Cardiovascular exam: PRESENT: RRR, +S1, +S2, tachycardia Pulses: PRESENT: normal radial pulses GI/Abdominal exam: PRESENT: soft Rectal exam: PRESENT: deferred Musculoskeletal exam: PRESENT: normal inspection Neurological exam: PRESENT: alert, awake, oriented to person, oriented to place, oriented to time, oriented to situation, CN II-XII grossly intact Psychiatric exam: PRESENT: appropriate affect Skin exam: PRESENT: dry, intact Results Laboratory Results: 10/24/19 15:28 10/24/19 15:28 10/24/19 10/24/19 10/24/19 04:00 04:00 11:26 WBC 8.3 RBC 4.17 L Hgb 12.6 L Hct 35.9 L MCV 86 MCH 30.3 MCHC 35.2 RDW 12.9 Plt Count 129 L Seg Neutrophils % Sodium 136.3 L Potassium 3.7 Chloride 105 Carbon Dioxide 22 Anion Gap 9 BUN 7 Creatinine 0.86 Est GFR ( Amer) > 60 Glucose 120 H Calcium 7.8 L Magnesium 2.0 C-Reactive Protein 186.2 H Stool for White Cells FEW H 10/24/19 10/24/19 15:28 15:28 WBC 9.3 RBC 3.91 L Hgb 11.9 L Hct 34.1 L MCV 87 MCH 30.5 MCHC 35.0 RDW 12.6 Plt Count 150 Seg Neutrophils % 84.2 H Sodium 133.7 L Potassium 3.3 L Chloride 105 Carbon Dioxide 22 Anion Gap 7 BUN 7 Creatinine 0.81 Est GFR ( Amer) > 60 Glucose 126 H Calcium 7.6 L Magnesium 2.0 C-Reactive Protein Stool for White Cells 10/22/19 10/22/19 10/22/19 09:40 09:40 10:52 Creatine Kinase 280 H CK-MB (CK-2) Troponin I 5.650 6.240 NT-Pro-B Natriuret Pep 3480 H 10/22/19 10/22/19 10/23/19 17:31 22:30 03:59 Creatine Kinase CK-MB (CK-2) Troponin I 4.200 3.180 2.340 NT-Pro-B Natriuret Pep 10/23/19 10/23/19 10/23/19 10:59 10:59 15:13 Creatine Kinase 99 91 CK-MB (CK-2) 0.84 Troponin I 1.670 NT-Pro-B Natriuret Pep 10/23/19 10/23/19 10/23/19 15:13 21:39 21:39 Creatine Kinase 82 CK-MB (CK-2) 0.58 0.69 Troponin I 1.510 1.460 NT-Pro-B Natriuret Pep 10/24/19 10/24/19 04:00 04:00 Creatine Kinase 100 CK-MB (CK-2) 1.34 Troponin I 1.010 NT-Pro-B Natriuret Pep 88658 H EKG Comments: Telemetry shows sinus tachycardia 110 bpm. Impressions: Chest/Abdomen CTA 10/22/19 12:57 IMPRESSION: There is no pulmonary embolus. There is no aortic aneurysm or dissection. No acute finding. Chest X-Ray 10/24/19 00:00 IMPRESSION: Fairly extensive bilateral alveolar basilar infiltrate most consistent with pulmonary edema. Assessment & Plan - Diagnosis (1) Elevated troponin Is this a current diagnosis for this admission?: Yes Plan: Likely secondary to severe infection. Probable myocarditis. Mild LV dysfunction on echocardiogram Unlikely to be acute coronary syndrome. Supportive care. No anticoagulants. (2) Tachycardia Is this a current diagnosis for this admission?: Yes Plan: Probably a reflection of severity of infection. Supportive care Low-dose beta-cedric can be instituted. (3) Myocarditis Qualifiers: Myocarditis type: idiopathic Chronicity: acute Qualified Code(s): I40.1 - Isolated myocarditis Is this a current diagnosis for this admission?: Yes Plan: Echocardiogram with mild LV dysfunction. Supportive care Echocardiogram should be repeated based on clinical progress. Low-dose beta-cedric
[2019-10-24] MEDS: LACTOBACILLUS ACIDOPHILUS 250 MG TAB PO SCH (18:04)
[2019-10-24] MEDS: FUROSEMIDE INJ/PF 20 MG/2 ML SDV IV SCH (21:37)
[2019-10-25 05:12] LABS: ABSOLUTE EOSINOPHILS # (AUTO) 0.1 10^3/uL (0.0-0.6); ABSOLUTE MONOCYTES (AUTO) 0.6 10^3/uL (0.1-1.4); ABSOLUTE NEUT (AUTO) 6.9 10^3/uL (1.7-8.2); BASOPHILS % (AUTO) 0.3 % (0-2); EOSINOPHILS % (AUTO) 0.9 % (0-6); HEMATOCRIT 36.2 % (37.9-51.0); HEMOGLOBIN 12.4 g/dL (13.5-17.0); MEAN CORPUSCULAR HEMOGLOBIN 30.1 pg (27.0-33.4); MEAN CORPUSCULAR HGB CONC 34.2 g/dL (32.0-36.0); MEAN CORPUSCULAR VOLUME 88 fl (80-97); MONOCYTES % (AUTO) 7.4 % (3-13); PLATELET COUNT 164 10^3/uL (150-450); RED CELL DISTRIBUTION WIDTH 12.9 % (11.5-14.0); SEGMENTED NEUTROPHILS % (AUTO) 80.4 % (42-78); TOTAL CELLS COUNTED % (AUTO) 100 %; WHITE BLOOD COUNT 8.6 10^3/uL (4.0-10.5)
[2019-10-25 05:42] LABS: ANION GAP 9 (5-19); BLOOD UREA NITROGEN 9 mg/dL (7-20); CARBON DIOXIDE 26 mmol/L (22-30); CHLORIDE 103 mmol/L (98-107); GLUCOSE 101 mg/dL (75-110)
[2019-10-25 05:48] LABS: ERYTHROCYTE SEDIMENTATION RATE 62 mm/hr (0-15)
[2019-10-25 05:56] LABS: C-REACTIVE PROTEIN 199.2 mg/L (<10.0)
[2019-10-25] MEDS: MORPHINE SULFATE 10 MG/ML INJ IV PRN ×2 (06:04→15:30)
[2019-10-25] MEDS: FUROSEMIDE INJ/PF 20 MG/2 ML SDV IV SCH ×5 (06:04→23:47)
[2019-10-25 08:23] LABS: ALBUMIN 2.6 g/dL (3.5-5.0); TOTAL PROTEIN 5.3 g/dL (6.3-8.2)
[2019-10-25] MEDS: LACTOBACILLUS ACIDOPHILUS 250 MG TAB PO SCH ×2 (09:50→17:22)
[2019-10-25] MEDS: FAMOTIDINE INJ/PF 20 MG/2 ML SDV IV SCH ×2 (09:51→22:04)
[2019-10-25] MEDS: POTASSIUM CHLORIDE 10 MEQ TABLET.ER PO SCH ×2 (09:51→22:04)
[2019-10-25] MEDS: ENOXAPARIN SODIUM INJ 80 MG/0.8 ML DISP.SYRIN SUBCUT SCH ×2 (09:52→22:06)
[2019-10-25] MEDS: KETOROLAC TROMETHAMINE INJ/PF 30 MG/1 ML SDV IV PRN (09:54)
[2019-10-25] MEDS: ONDANSETRON HCL INJ/PF 4 MG/2 ML SDV IV PRN ×2 (09:59→22:04)
[2019-10-25] MEDS: METOPROLOL TARTRATE 25 MG TABLET PO SCH ×2 (11:49→22:53)
[2019-10-25] MEDS ORDERED: MORPHINE SULFATE 10 MG/ML INJ IV PRN (16:24)
--- NOTE | 2019-10-25 20:05 | PDOC PROGRESS REPORT ---
Subjective Progress Note for:: 10/25/19 Subjective:: The patient is resting in bed. He reports that he is trying to take a nap. He was up playing cards with friends earlier today. His major complaint is headache and discomfort across the upper chest especially when breathing or coughing. Reason For Visit: MYOCARDITIS,HYPOTENSION,FEVER,CHILLS N&V Physical Exam Vital Signs: Temp Pulse Resp BP Pulse Ox 98.6 F 100 18 94/58 L 92 10/25/19 15:34 10/25/19 15:34 10/25/19 15:34 10/25/19 15:34 10/25/19 15:34 Intake & Output 10/24/19 10/25/19 10/26/19 06:59 06:59 06:59 Intake Total 6730 3273 480 Output Total 1650 953 500 Balance 5080 2320 -20 Weight 74.4 kg 72.9 kg General appearance: PRESENT: no acute distress, cooperative, well-developed, well-nourished Head exam: PRESENT: atraumatic, normocephalic Eye exam: PRESENT: conjunctiva pink. ABSENT: scleral icterus Ear exam: PRESENT: normal external ear exam. ABSENT: bleeding, drainage Mouth exam: PRESENT: moist, tongue midline Respiratory exam: PRESENT: rales - Faint rales at bases, symmetrical, unlabored. ABSENT: accessory muscle use, prolonged expiratory phas, rhonchi, tachypnea, wheezes Cardiovascular exam: PRESENT: RRR, +S1, +S2 GI/Abdominal exam: PRESENT: normal bowel sounds, soft. ABSENT: distended, guarding, tenderness Rectal exam: PRESENT: deferred Extremities exam: ABSENT: pedal edema Musculoskeletal exam: PRESENT: ambulatory, full ROM, normal inspection Neurological exam: PRESENT: alert, awake, oriented to person, oriented to place, oriented to time, oriented to situation, CN II-XII grossly intact Psychiatric exam: PRESENT: appropriate affect. ABSENT: agitated, anxious Focused psych exam: ABSENT: delusional, restlessness Skin exam: PRESENT: dry, normal color, warm. ABSENT: rash Results Laboratory Results: 10/25/19 04:40 10/25/19 04:40 10/25/19 10/25/19 10/25/19 04:40 04:40 04:40 WBC 8.6 RBC 4.10 L Hgb 12.4 L Hct 36.2 L MCV 88 MCH 30.1 MCHC 34.2 RDW 12.9 Plt Count 164 Seg Neutrophils % 80.4 H Sodium 137.8 Potassium 4.0 Chloride 103 Carbon Dioxide 26 Anion Gap 9 BUN 9 Creatinine 0.84 Est GFR ( Amer) > 60 Glucose 101 Calcium 8.0 L Magnesium 2.1 C-Reactive Protein 199.2 H Total Protein 5.3 L Albumin 2.6 L 10/22/19 10/22/19 10/22/19 09:40 09:40 10:52 Creatine Kinase 280 H CK-MB (CK-2) Troponin I 5.650 6.240 NT-Pro-B Natriuret Pep 3480 H 10/22/19 10/22/19 10/23/19 17:31 22:30 03:59 Creatine Kinase CK-MB (CK-2) Troponin I 4.200 3.180 2.340 NT-Pro-B Natriuret Pep 10/23/19 10/23/19 10/23/19 10:59 10:59 15:13 Creatine Kinase 99 91 CK-MB (CK-2) 0.84 Troponin I 1.670 NT-Pro-B Natriuret Pep 10/23/19 10/23/19 10/23/19 15:13 21:39 21:39 Creatine Kinase 82 CK-MB (CK-2) 0.58 0.69 Troponin I 1.510 1.460 NT-Pro-B Natriuret Pep 10/24/19 10/24/19 10/25/19 04:00 04:00 04:40 Creatine Kinase 100 CK-MB (CK-2) 1.34 Troponin I 1.010 NT-Pro-B Natriuret Pep 59361 H 52696 H Impressions: Chest/Abdomen CTA 10/22/19 12:57 IMPRESSION: There is no pulmonary embolus. There is no aortic aneurysm or dissection. No acute finding. Chest X-Ray 10/24/19 00:00 IMPRESSION: Fairly extensive bilateral alveolar basilar infiltrate most co nsistent with pulmonary edema. Assessment and Plan - Diagnosis (1) Myocarditis Qualifiers: Myocarditis type: idiopathic Chronicity: acute Qualified Code(s): I40.1 - Isolated myocarditis Is this a current diagnosis for this admission?: Yes Plan: Blood pressures are slightly better. I believe the addition of the metoprolol is helped. We will recheck inflammatory markers tomorrow. (2) Hypotension Qualifiers: Hypotension type: hypotension due to hypovolemia Qualified Code(s): I95.89 - Other hypotension; E86.1 - Hypovolemia Is this a current diagnosis for this admission?: Yes Plan: Still with soft blood pressures but this seem to be improving. We will continue to monitor. (3) Tachycardia Is this a current diagnosis for this admission?: Yes Plan: Improved with the addition of low-dose metoprolol (4) Hyponatremia Is this a current diagnosis for this admission?: Yes Plan: Serum sodium is now normal. We will continue to monitor. (5) Elevated troponin Is this a current diagnosis for this admission?: Yes Plan: Continue to improve. No longer monitoring. (6) Vomiting and diarrhea Is this a current diagnosis for this admission?: Yes Plan: Appears to have resolved. Viral culture still pending. No longer on antibiotics. Continue probiotics. (7) Fever Qualifiers: Fever type: unspecified Qualified Code(s): R50.9 - Fever, unspecified Is this a current diagnosis for this admission?: Yes Plan: Afebrile for the last 24 hours - Plan Summary Summary: 10/25/2019-the patient appears to be settling down. He is maintaining his blood pressure without aggressive fluids. We are in fact diuresing off some of his volume overload. He has been started on low-dose metoprolol and this has significantly improved the tachycardia. We will continue to monitor his intake and output. A repeat echocardiogram is pending to make sure that the ejection fraction has not decreased. The etiology of the myocarditis is still unknown but multiple tests are still pending. - Time Time Spent with patient: 15-24 minutes Medications reviewed and adjusted accordingly: Yes Anticipated discharge: Home
[2019-10-26 00:36] LABS: Q FEVER PHASE I AB Negative (Neg:<1:16); ROCKY MTN SPOTTED FEV IGG EIA Negative (Negative)
[2019-10-26] MEDS: FUROSEMIDE INJ/PF 20 MG/2 ML SDV IV SCH ×2 (05:15→13:38)
[2019-10-26 05:47] LABS: ABSOLUTE EOSINOPHILS # (AUTO) 0.3 10^3/uL (0.0-0.6); ABSOLUTE LYMPHOCYTES (AUTO) 1.1 10^3/uL (0.5-4.7); ABSOLUTE MONOCYTES (AUTO) 0.7 10^3/uL (0.1-1.4); ABSOLUTE NEUT (AUTO) 5.7 10^3/uL (1.7-8.2); BASOPHILS % (AUTO) 0.5 % (0-2); EOSINOPHILS % (AUTO) 3.5 % (0-6); HEMATOCRIT 34.4 % (37.9-51.0); HEMOGLOBIN 11.9 g/dL (13.5-17.0); LYMPHOCYTES % (AUTO) 13.9 % (13-45); MEAN CORPUSCULAR HEMOGLOBIN 30.1 pg (27.0-33.4); MEAN CORPUSCULAR HGB CONC 34.6 g/dL (32.0-36.0); MEAN CORPUSCULAR VOLUME 87 fl (80-97); MONOCYTES % (AUTO) 8.8 % (3-13); PLATELET COUNT 200 10^3/uL (150-450); RED BLOOD COUNT 3.95 10^6/uL (4.35-5.55); RED CELL DISTRIBUTION WIDTH 12.8 % (11.5-14.0); SEGMENTED NEUTROPHILS % (AUTO) 73.3 % (42-78); TOTAL CELLS COUNTED % (AUTO) 100 %; WHITE BLOOD COUNT 7.7 10^3/uL (4.0-10.5)
[2019-10-26 06:30] LABS: C-REACTIVE PROTEIN 155.5 mg/L (<10.0)
[2019-10-26] MEDS: KETOROLAC TROMETHAMINE INJ/PF 30 MG/1 ML SDV IV PRN (08:07)
--- NOTE | 2019-10-26 09:09 | RADIOLOGY REPORT (SQ) ---
EXAM DESCRIPTION: CHEST 2 VIEWS COMPLETED DATE/TIME: 10/26/2019 8:31 am REASON FOR STUDY: Pulmonary edema COMPARISON: AP view of the chest from 10/24/2019. EXAM PARAMETERS: NUMBER OF VIEWS: two views TECHNIQUE: PA and lateral views of the chest were obtained. RADIATION DOSE: NA LIMITATIONS: none FINDINGS: LUNGS AND PLEURA: The aeration of the left lower lobe has improved compared to the radiogr aph from 10/24/2027, however pleural and parenchymal opacities remain in the inferior left hemithorax that could represent a combination of pleural fluid, atelectasis and/or consolidation. The opacities in the inferior right hemithorax are unchanged. MEDIASTINUM AND HILAR STRUCTURES: Stable mediastinal and hilar contours. HEART AND VASCULAR STRUCTURES: Stable cardiac silhouette. BONES: No acute findings. HARDWARE: None in the chest. OTHER: No other finding. IMPRESSION: The aeration of the left lower lobe has improved compared to the radiograph from 10/24/19 28, however pleural and parenchymal opacities remain in the inferior left hemithorax that could repre sent a combination of pleural fluid, atelectasis and/or consolidation. The opacities in the inferior right hemithorax are unchanged. TECHNICAL DOCUMENTATION: JOB ID: [id number] [employer]- All Rights Reserved Reading location - IP/workstation name: [email or web address]
[2019-10-26] MEDS: METOPROLOL TARTRATE 25 MG TABLET PO SCH (10:34)
[2019-10-26] MEDS: ENOXAPARIN SODIUM INJ 80 MG/0.8 ML DISP.SYRIN SUBCUT SCH (10:41)
[2019-10-26] MEDS: POTASSIUM CHLORIDE 10 MEQ TABLET.ER PO SCH (10:41)
[2019-10-26] MEDS: FAMOTIDINE INJ/PF 20 MG/2 ML SDV IV SCH (10:42)
[2019-10-26] MEDS: LACTOBACILLUS ACIDOPHILUS 250 MG TAB PO SCH (10:43)
[2019-10-26 10:49] LABS: TOXOPLASMA GONDII IGM AB <3.0 AU/mL (0.0-7.9)
[2019-10-26 10:49] LABS: Q FEVER PHASE II AB Negative (Neg:<1:16)
--- NOTE | 2019-10-26 12:42 | PDOC PROGRESS REPORT ---
Subjective Progress Note for:: 10/26/19 Subjective:: Resting comfortably D/C oxygen and if pox ok will d/c Reason For Visit: MYOCARDITIS,HYPOTENSION,FEVER,CHILLS N&V Physical Exam Vital Signs: Temp Pulse Resp BP Pulse Ox 98.8 F 100 18 97/51 L 97 10/26/19 08:05 10/26/19 08:05 10/26/19 08:05 10/26/19 08:05 10/26/19 09:11 Intake & Output 10/25/19 10/26/19 10/27/19 06:59 06:59 06:59 Intake Total 3273 980 Output Total 953 500 Balance 2320 480 Weight 72.9 kg 71.4 kg Results Laboratory Results: 10/26/19 04:59 10/25/19 04:40 10/26/19 10/26/19 04:59 04:59 WBC 7.7 RBC 3.95 L Hgb 11.9 L Hct 34.4 L MCV 87 MCH 30.1 MCHC 34.6 RDW 12.8 Plt Count 200 Seg Neutrophils % 73.3 Magnesium 2.1 C-Reactive Protein 155.5 H 10/24/19 11:26 Stool - Stool - Final 10/24/19 11:26 Stool - Stool Stool Culture - Final NO SALMONELLA, SHIGELLA, CAMPYLOBACTER, OR E.COLI 0157 RECOVERED. NEGATIVE FOR SHIGA TOXINS 1&2. 10/22/19 10/22/19 10/22/19 09:40 09:40 10:52 Creatine Kinase 280 H CK-MB (CK-2) Troponin I 5.650 6.240 NT-Pro-B Natriuret Pep 3480 H 10/22/19 10/22/19 10/23/19 17:31 22:30 03:59 Creatine Kinase CK-MB (CK-2) Troponin I 4.200 3.180 2.340 NT-Pro-B Natriuret Pep 10/23/19 10/23/19 10/23/19 10:59 10:59 15:13 Creatine Kinase 99 91 CK-MB (CK-2) 0.84 Troponin I 1.670 NT-Pro-B Natriuret Pep 10/23/19 10/23/19 10/23/19 15:13 21:39 21:39 Creatine Kinase 82 CK-MB (CK-2) 0.58 0.69 Troponin I 1.510 1.460 NT-Pro-B Natriuret Pep 10/24/19 10/24/19 10/25/19 04:00 04:00 04:40 Creatine Kinase 100 CK-MB (CK-2) 1.34 Troponin I 1.010 NT-Pro-B Natriuret Pep 77611 H 70406 H 10/26/19 04:59 Creatine Kinase CK-MB (CK-2) Troponin I NT-Pro-B Natriuret Pep 7070 H Impressions: Chest/Abdomen CTA 10/22/19 12:57 IMPRESSION: There is no pulmonary embolus. There is no aortic aneurysm or dissection. No acute finding. Chest X-Ray 10/26/19 06:00 IMPRESSION: The aeration of the left lower lobe has improved compared to the radiograph from 10/24/2027, however pleural and parenchymal opacities remain in the inferior left hemithorax that could represent a combination of pleural fluid, atelectasis and/or consolidation. The opacities in the inferior right hemithorax are unchanged. Assessment and Plan - Diagnosis (1) Myocarditis Qualifiers: Myocarditis type: idiopathic Chronicity: acute Qualified Code(s): I40.1 - Isolated myocarditis Is this a current diagnosis for this admission?: Yes (2) Hypotension Qualifiers: Hypotension type: hypotension due to hypovolemia Qualified Code(s): I95.89 - Other hypotension; E86.1 - Hypovolemia Is this a current diagnosis for this admission?: Yes (3) Tachycardia Is this a current diagnosis for this admission?: Yes (4) Hyponatremia Is this a current diagnosis for this admission?: Yes (5) Elevated troponin Is this a current diagnosis for this admission?: Yes (6) Vomiting and diarrhea Is this a current diagnosis for this admission?: Yes (7) Fever Qualifiers: Fever type: unspecified Qualified Code(s): R50.9 - Fever, unspecified Is this a current diagnosis for this admission?: Yes - Plan Summary Summary: 10/25/2019-the patient appears to be settling down. He is maintaining his blood pressure without aggressive fluids. We are in fact diuresing off some of his volume overload. He has been started on low-dose metoprolol and this has significantly improved the tachycardia. We will continue to monitor his intake and output. A repeat echocardiogram is pending to make sure that the ejection fraction has not decreased. The etiology of the myocarditis is still unknown but multiple tests are still pending.
--- NOTE | 2019-10-26 16:09 | PDOC DISCHARGE SUMMARY ---
Impression - Admit/DC Date/PCP Admission Date/Primary Care Provider: 10/23/19 08:02 Discharge Date: 10/26/19 - Discharge Diagnosis (1) Myocarditis Is this a current diagnosis for this admission?: Yes (2) Hypotension Is this a current diagnosis for this admission?: Yes (3) Tachycardia Is this a current diagnosis for this admission?: Yes (4) Hyponatremia Is this a current diagnosis for this admission?: Yes (5) Elevated troponin Is this a current diagnosis for this admission?: Yes (6) Vomiting and diarrhea Is this a current diagnosis for this admission?: Yes (7) Fever Is this a current diagnosis for this admission?: Yes - Assessment Summary: 10/25/2019-the patient appears to be settling down. He is maintaining his blood pressure without aggressive fluids. We are in fact diuresing off some of his volume overload. He has been started on low-dose metoprolol and this has significantly improved the tachycardia. We will continue to monitor his intake and output. A repeat echocardiogram is pending to make sure that the ejection fraction has not decreased. The etiology of the myocarditis is still unknown but multiple tests are still pending. - Additional Information Resuscitation Status: Full Code Discharge Diet: Other (Comments) - Low-salt Discharge Activity: Activity As Tolerated Referrals: VIRGINIE VARGAS MD [ACTIVE STAFF] - 10/31/19 10:30 am (Follow-up with Dr. Vargas within 7 days) Prescriptions: Furosemide [Lasix 20 mg Tablet] 20 mg PO QAM 7 Days #7 tablet Metoprolol Succinate [Toprol Xl 25 mg Tab.sr] 12.5 mg PO Q12 7 Days #7 tab.sr.24h Home Medications: Furosemide [Lasix 20 mg Tablet] 20 mg PO QAM 7 Days #7 tablet 10/26/19 Metoprolol Succinate [Toprol Xl 25 mg Tab.sr] 12.5 mg PO Q12 7 Days #7 tab.sr.24h 10/26/19 History of Present Illiness History of Present Illness: JORGE ALBERTO PRINCE is a 24 year old male with no significant past medical history who reports progressive symptoms of nausea, vomiting, diarrhea, fever, chills, cold sweats and body aches since Tuesday at 3:00 in the morning. In the emergency room he is found to have elevated troponin, elevated BNP, elevated creatinine kinase, elevated C-reactive protein and hyponatremia. Myocarditis is suspected and the patient was referred to the hospital service for admission Hospital Course Hospital Course: Because of the nausea, vomiting and diarrhea the patient was felt to have a viral myocarditis. The patient exhibited ongoing low blood pressure during his admission. Initial echocardiogram showed a depressed ejection fraction. I did order a repeat to make sure that his ejection fraction was not any lower. The final results are still pending. Because of his low blood pressure he received very aggressive hydration. It resulted in pulmonary edema. This is been treated with furosemide. He had remained tachycardic consistently. We did institute low-dose metoprolol and this did seem to help. Once his heart rate slowed down his blood pressure also increased. At the height of the hypoxia he required 3.5 L of oxygen by nasal cannula. In order to discover the potential etiology stool cultures were submitted. There was no evidence of Salmonella, Shigella or Campylobacter. There was no toxigenic E. coli. Norovirus was negative and viral culture is negative at 24 hours. Testing for other atypical causes of myocarditis have been negative thus far. Today he was able to ambulate on room air maintaining saturation above 94%. I would discharge him on low-dose metoprolol, low-dose furosemide and instruct him to use [id number] anti-inflammatories as needed. He should utilize orange juice or banana for potassium supplementation. I have asked that he see Dr. Vargas in 1 week. Physical Exam Vital Signs: Temp Pulse Resp BP Pulse Ox 98.8 F 94 18 97/51 L 97 10/26/19 08:05 10/26/19 14:00 10/26/19 08:05 10/26/19 08:05 10/26/19 09:11 Intake & Output 10/25/19 10/26/19 10/27/19 06:59 06:59 06:59 Intake Total 3273 980 450 Output Total 953 500 Balance 2320 480 450 Weight 72.9 kg 71.4 kg General appearance: PRESENT: no acute distress, cooperative, well-developed, well-nourished Head exam: PRESENT: atraumatic, normocephalic Ear exam: PRESENT: normal external ear exam. ABSENT: bleeding, drainage Mouth exam: PRESENT: moist, tongue midline Respiratory exam: PRESENT: clear to auscultation raul, symmetrical, unlabored. ABSENT: prolonged expiratory phas, rales, rhonchi, tachypnea, wheezes Cardiovascular exam: PRESENT: RRR, +S1, +S2, systolic murmur - 1/6 GI/Abdominal exam: PRESENT: normal bowel sounds, soft. ABSENT: distended, guarding, tenderness Rectal exam: PRESENT: deferred Gentrourinary exam: ABSENT: indwelling catheter Extremities exam: ABSENT: joint swelling, pedal edema Musculoskeletal exam: PRESENT: ambulatory, normal inspection. ABSENT: deformity Neurological exam: PRESENT: alert, awake, oriented to person, oriented to place, oriented to time, oriented to situation, CN II-XII grossly intact. ABSENT: motor sensory deficit Psychiatric exam: PRESENT: appropriate affect. ABSENT: agitated, anxious Focused psych exam: ABSENT: delusional, restlessness Skin exam: PRESENT: dry, normal color, warm. ABSENT: rash Results Laboratory Results: WBC 7.7 10^3/uL (4.0-10.5) 10/26/19 04:59 RBC 3.95 10^6/uL (4.35-5.55) L 10/26/19 04:59 Hgb 11.9 g/dL (13.5-17.0) L 10/26/19 04:59 Hct 34.4 % (37.9-51.0) L 10/26/19 04:59 MCV 87 fl (80-97) 10/26/19 04:59 MCH 30.1 pg (27.0-33.4) 10/26/19 04:59 MCHC 34.6 g/dL (32.0-36.0) 10/26/19 04:59 RDW 12.8 % (11.5-14.0) 10/26/19 04:59 Plt Count 200 10^3/uL (150-450) 10/26/19 04:59 Lymph % (Auto) 13.9 % (13-45) 10/26/19 04:59 Cecil % (Auto) 8.8 % (3-13) 10/26/19 04:59 Eos % (Auto) 3.5 % (0-6) 10/26/19 04:59 Baso % (Auto) 0.5 % (0-2) 10/26/19 04:59 Absolute Neuts (auto) 5.7 10^3/uL (1.7-8.2) 10/26/19 04:59 Absolute Lymphs (auto) 1.1 10^3/uL (0.5-4.7) 10/26/19 04:59 Absolute Monos (auto) 0.7 10^3/uL (0.1-1.4) 10/26/19 04:59 Absolute Eos (auto) 0.3 10^3/uL (0.0-0.6) 10/26/19 04:59 Absolute Basos (auto) 0.0 10^3/uL (0.0-0.2) 10/26/19 04:59 Seg Neutrophils % 73.3 % (42-78) 10/26/19 04:59 ESR 62 mm/hr (0-15) H 10/25/19 04:40 Sodium 137.8 mmol/L (137-145) 10/25/19 04:40 Potassium 4.0 mmol/L (3.6-5.0) 10/25/19 04:40 Chloride 103 mmol/L (98-107) 10/25/19 04:40 Carbon Dioxide 26 mmol/L (22-30) 10/25/19 04:40 Anion Gap 9 (5-19) 10/25/19 04:40 BUN 9 mg/dL (7-20) 10/25/19 04:40 Creatinine 0.84 mg/dL (0.52-1.25) 10/25/19 04:40 Est GFR ( Amer) > 60 (>60) 10/25/19 04:40 Est GFR (MDRD) Non-Af > 60 (>60) 10/25/19 04:40 Glucose 101 mg/dL (75-110) 10/25/19 04:40 Lactic Acid 0.6 mmol/L (0.7-2.1) L 10/23/19 03:59 Calcium 8.0 mg/dL (8.4-10.2) L 10/25/19 04:40 Magnesium 2.1 mg/dL (1.6-2.3) 10/26/19 04:59 Total Bilirubin 1.3 mg/dL (0.2-1.3) 10/23/19 03:59 Direct Bilirubin 0.7 mg/dL (0.0-0.4) H 10/23/19 03:59 Neonat Total Bilirubin Not Reportable 10/23/19 03:59 Neonat Direct Bilirubin Not Reportable 10/23/19 03:59 Neonat Indirect Bili Not Reportable 10/23/19 03:59 AST 158 U/L (17-59) H 10/23/19 03:59 ALT 99 U/L (<50) 10/23/19 03:59 Alkaline Phosphatase 101 U/L (38-126) 10/23/19 03:59 Creatine Kinase 100 U/L (55-170) 10/24/19 04:00 CK-MB (CK-2) 1.34 ng/mL (<4.55) 10/24/19 04:00 Troponin I 1.010 ng/mL 10/24/19 04:00 C-Reactive Protein 155.5 mg/L (<10.0) H 10/26/19 04:59 NT-Pro-B Natriuret Pep 7070 pg/mL (<125) H 10/26/19 04:59 Total Protein 5.3 g/dL (6.3-8.2) L 10/25/19 04:40 Albumin 2.6 g/dL (3.5-5.0) L 10/25/19 04:40 Urine Color YELLOW 10/22/19 12:32 Urine Appearance CLEAR 10/22/19 12:32 Urine pH 6.0 (5.0-9.0) 10/22/19 12:32 Ur Specific [place] 1.009 10/22/19 12:32 Urine Protein NEGATIVE mg/dL (NEGATIVE) 10/22/19 12:32 Urine Glucose (UA) NEGATIVE mg/dL (NEGATIVE) 10/22/19 12:32 Urine Ketones TRACE mg/dL (NEGATIVE) H 10/22/19 12:32 Urine Blood MODERATE (NEGATIVE) H 10/22/19 12:32 Urine Nitrite NEGATIVE (NEGATIVE) 10/22/19 12:32 Urine Bilirubin NEGATIVE (NEGATIVE) 10/22/19 12:32 Urine Urobilinogen NEGATIVE mg/dL (<2.0) 10/22/19 12:32 Ur Leukocyte Esterase NEGATIVE (NEGATIVE) 10/22/19 12:32 Urine WBC (Auto) 0 /HPF 10/22/19 12:32 Urine RBC (Auto) 1 /HPF 10/22/19 12:32 Urine Mucus (Auto) RARE /LPF 10/22/19 12:32 Urine Ascorbic Acid NEGATIVE (NEGATIVE) 10/22/19 12:32 Stool for White Cells FEW H 10/24/19 11:26 Time Trough Drawn 1330 10/23/19 13:30 Vancomycin Trough 6.9 ug/mL (5.0-20.0) 10/23/19 13:30 Urine Opiates Screen NEGATIVE 10/22/19 12:32 Urine Methadone Screen NEGATIVE 10/22/19 12:32 Ur Barbiturates Screen NEGATIVE 10/22/19 12:32 Ur Phencyclidine Scrn NEGATIVE 10/22/19 12:32 Ur Amphetamines Screen NEGATIVE 10/22/19 12:32 U Benzodiazepines Scrn NEGATIVE 10/22/19 12:32 Urine Cocaine Screen NEGATIVE 10/22/19 12:32 U Marijuana (THC) Screen NEGATIVE 10/22/19 12:32 HIV 1&2 Antibody NEGATIVE (NEGATIVE) 10/24/19 11:26 Influenza A (Rapid) NEGATIVE (NEGATIVE) 10/22/19 10:21 Influenza B (Rapid) NEGATIVE (NEGATIVE) 10/22/19 10:21 Q Fever Phase I Ab Negative (Neg:<1:16) 10/24/19 11:26 Q Fever Phase II Ab Negative (Neg:<1:16) 10/24/19 11:26 Spotted Fever Grp IgG Negative (Negative) 10/24/19 11:26 Toxoplasma IgM Comment Comment (.) 10/25/19 04:40 Toxoplasma gondii IgM <3.0 AU/mL (0.0-7.9) 10/25/19 04:40 10/22/19 10/22/19 10/22/19 09:40 10:52 17:31 CK-MB (CK-2) Troponin I 5.650 6.240 4.200 NT-Pro-B Natriuret Pep 3480 H 10/22/19 10/23/19 10/23/19 22:30 03:59 10:59 CK-MB (CK-2) 0.84 Troponin I 3.180 2.340 1.670 NT-Pro-B Natriuret Pep 10/23/19 10/23/19 10/24/19 15:13 21:39 04:00 CK-MB (CK-2) 0.58 0.69 1.34 Troponin I 1.510 1.460 1.010 NT-Pro-B Natriuret Pep 70586 H 10/25/19 10/26/19 04:40 04:59 CK-MB (CK-2) Troponin I NT-Pro-B Natriuret Pep 89719 H 7070 H Impressions: Chest X-Ray 10/22/19 09:16 IMPRESSION: No acute cardiopulmonary process. Chest/Abdomen CTA 10/22/19 12:57 IMPRESSION: There is no pulmonary embolus. There is no aortic aneurysm or dissection. No acute finding. Chest X-Ray 10/24/19 00:00 IMPRESSION: Fairly extensive bilateral alveolar basilar infiltrate most consistent with pulmonary edema. Chest X-Ray 10/26/19 06:00 IMPRESSION: The aeration of the left lower lobe has improved compared to the radiograph from 10/24/2027, however pleural and parenchymal opacities remain in the inferior left hemithorax that could represent a combination of pleural fluid, atelectasis and/or consolidation. The opacities in the inferior right hemithorax are unchanged. Plan Health Concerns: It is most likely that we will never find the etiology of his myocarditis. He is certainly clinically improved. I did asked that he follow-up with cardiology locally who consulted on this patient while hospitalized. Discharge medications as above. Plan of Treatment: The patient lives out of town. He will find a primary care physician when he gets home. He was just visiting some friends. Goals: The patient lives out of town. He will find a primary care physician when he gets home. He was just visiting some friends. Time Spent: Greater than 30 Minutes Stroke Is this a Stroke Patient?: No Acute Heart Failure - Is this a Heart Failure Patient?: No
[2019-10-26 16:27] VITALS: BP 103/54
--- NOTE | 2019-10-26 19:12 | XCELERA REPORT ---
[address] [address] Transthoracic Echocardiogram Report Name: JORGE ALBERTO PRINCE Age: 24 yrs Gender: Male : 1995 Patient Status: Inpatient Patient Location: ^320^A Study Date: 10/25/2019 06:01 PM Height: 72 in Weight: 160 lb BSA: 1.9 m2 Reason For Study: re-assess EF in myocarditis patient Ordering Physician: NAIDA MATTA Performed By: Mili Moise Interpretation Summary Todays ECHO showed 1. Increased posterior pericardial effusion(now small) sharyn from mid venticle to apical LV , 3 days ago, this was minimal. 2. There is signif pleural effision with atelectatic lung 3. Whereas the visual LVEF 3 days ago was 45-50%, todays echo Biplane LVEF is now 41% (definitely decreased even visually.)) 4.The LV dimensions are not much different, today's LVESD is 40mm (now beginning to be dilated) vs 38mm (3 days ago) 5. Today, the LV is showing for the first time LV diastolic dysfunction in the the TDI (lateral annulus ) is 15 vs normal (3 days ago) 6. The IVS is not echogenic to suggest amyloidosis, and no signif valvular disease or congenital defects is suspected. Not withstanding the above, the diagnosis of myocarditis should not rely on ECHO, gadolinium enhanced CMR, and antimyosin scintigraphy, and endomyocardial biopsy for viral particles and genomic studies to lead you to the etiology should be considered. LHC for coronaries to rule out ischemia if this is a new onset heart failure is mandatory. Dr Nelson Prescott. MMode/2D Measurements & Calculations RVDd: 1.8 cm LVIDd: 5.1 cm FS: 16.3 % Ao root diam: IVSd: 0.90 cm LVIDs: 4.2 cm EDV(Teich): 2.8 cm LVPWd: 0.92 cm 121.1 ml Ao root area: ESV(Teich): 79.8 ml 6.0 cm2 LA dimension: EF(Teich): 34.1 % 3.5 cm LVLd ap4: 8.2 cm SV(MOD-sp4): EDV(MOD-sp4): 46.0 ml 108.0 ml LVLs ap4: 7.2 cm ESV(MOD-sp4): 62.0 ml EF(MOD-sp4): 42.6 % I WMSI = 1.94 % Normal = 6 Segments Size X - Cannot 1 - Normal 2 - 3 - Akinetic4 - 1-2 small Interpret Hypokinetic Dyskinetic 3-5 moderate 5 - 6-14 large Aneurysmal 15-16 diffuse : NAIDA MATTA Andre
== END 2019-10-26 17:00 | disposition home or self-care (01) | DRG 315 ==
LOC: ER 08:39 → EH 10-23 08:02 → 3W 10-23 09:11
PROVIDERS: ADMIT Hospitalist; ATTEND Hospitalist
DX: I40.0 Infective myocarditis (principal); E87.1 Hypo-osmolality and hyponatremia; I95.9 Hypotension, unspecified; R74.8 Abnormal levels of other serum enzymes; E86.1 Hypovolemia; F17.210 Nicotine dependence, cigarettes, uncomplicated; Z60.2 Problems related to living alone
CPT/HCPCS: 36415; 71045; 71046; 71275; 80048; 80053; 80202; 80307; 81001; 82040; 82550; 82553; 83605; 83735; 83880; 84155; 84484; 85025; 85027; 85652; 86140; 86701; 86720; 86757; 86778; 87040; 87045; 87205; 87252; 87798; 87804; 89055; 93005; 93010; 93306; 93308; 96361; 96374; 99285; J0692; J1650; J1885; J1940; J2270; J2405; J3370; J3480; J3490; J7030; J7060; S0028